=== PATIENT | male | born 1965 | race Caucasian/White ===

== ENCOUNTER → 2024-11-13 | Outpatient (CLI) | payer OTHER ==
[2024-11-13 15:28] LABS: CREATININE FOR GFR 1.21 MG/DL (0.70-1.30); GLOMERULAR FILTRATION RATE 68.1 (>49)
== END ==
LOC: M LAB 13:59
PROVIDERS: ATTEND Otolaryngology
DX: M48.02 Spinal stenosis, cervical region (principal)

== ENCOUNTER → 2024-11-24 | Outpatient (CLI) | payer OTHER ==
[~2024-11-24] MED LIST: ISOVUE-370 76% 100 ML VIAL ONE
== END ==
LOC: M PLAIMG 09:21
PROVIDERS: ATTEND Otolaryngology
DX: M50.01 Cervical disc disorder with myelopathy, high cervical region (principal)
CPT/HCPCS: 70491; Q9967

== ENCOUNTER → 2025-01-02 | Outpatient (CLI) | payer OTHER | LOC: M PLAIMG 14:34 | PROVIDERS: ATTEND Neurological Surgery | DX: M50.01 Cervical disc disorder with myelopathy, high cervical region (principal) ==

== ENCOUNTER 2025-02-17 06:16 | Observation (INO) | payer OTHER ==
[2025-02-17] VITALS (9 sets, daily range): BP systolic 126–146; BP diastolic 67–81; TEMP 97.2–98.2; O2SAT 91–96
[~2025-02-17] VITALS: Ht 180.3 cm; Wt 93.9 kg
[~2025-02-17 06:16] MED LIST changes: +DULO1CAP4 PO; +GABA-1171 PO; +HYDR-3490 PO; -ISOVUE-370 76% 100 ML VIAL ONE; +NAPR-1405 PO; +SIMV40TA20 PO; +TRIPCAP5 PO; +VALS40TA9 PO
[2025-02-17] MEDS: LR 1,000 ML IV SCH (07:00)
[2025-02-17] MEDS ORDERED: PROPOFOL 1,000 MG/100 ML VIAL As Ordered ONE (07:08)
[2025-02-17] MEDS ORDERED: SUCCINYLCHOLINE 100MG/5ML SYRINGE As Ordered ONE (07:15)
[2025-02-17] MEDS ORDERED: LIDOCAINE 2% 100 MG/5 ML SDV (FOR ANES.) As Ordered ONE (07:15)
[2025-02-17] MEDS ORDERED: MIDAZOLAM INJ 2 MG/2 ML VIAL As Ordered ONE (07:16)
[2025-02-17] MEDS ORDERED: ROCURONIUM BROMIDE 50MG/5ML VIAL As Ordered ONE (07:16)
[2025-02-17] MEDS ORDERED: REMIFENTANIL 1MG VIAL As Ordered ONE (07:19)
[2025-02-17] MEDS: GABAPENTIN 300 MG CAP PO ONE (07:24)
[2025-02-17] MEDS: LIDOCAINE W/EPINEPHrine 1% 20 ML VIAL As Ordered ONE (08:39)
[2025-02-17] MEDS ORDERED: ACETAMINOPHEN 1000MG/100ML IV BAG As Ordered ONE (09:59)
[2025-02-17] MEDS ORDERED: ONDANSETRON 4MG/2ML VIAL IV PRN ×2 (11:35→11:40)
[2025-02-17] MEDS ORDERED: METOPROLOL 5 MG/5 ML VIAL IV PRN (11:40)
[2025-02-17] MEDS ORDERED: hydrALAZINE 20 MG/ML 1 ML VIAL IV PRN (11:40)
[2025-02-17] MEDS ORDERED: CHLORASEPTIC SPRAY MT PRN (12:10)
[2025-02-17] MEDS: HYDROMORPHONE HCL 0.5 MG/0.5 ML SYRINGE IV PRN (12:10)
[2025-02-17] MEDS: MORPHINE 2 MG/ML 1 ML VIAL IV PRN (12:24)
[2025-02-17 13:05] LABS: BASO # 0.1 10^3/uL (0.0-0.2); BASO % 0.6 % (0.0-1.0); EOS # 0.1 10^3/uL (0.0-0.5); EOS % 1.5 % (0.0-3.0); LYMPH # 1.0 10^3/uL (1.5-5.0); LYMPH % 11.2 % (24.0-44.0); MONO # 0.4 10^3/uL (0.0-0.8); MONO % 4.5 % (2.0-8.0); NEUTROPHILS # 7.4 10^3/uL (1.5-8.5); NEUTROPHILS % 81.8 % (36.0-66.0); PLATELET COUNT, AUTOMATED 307 10^3/uL (150-450)
[2025-02-17 13:25] LABS: CALCIUM LEVEL 9.1 MG/DL (8.3-10.6); CARBON DIOXIDE LEVEL 28.0 MMOL/L (20-31); CHLORIDE LEVEL 102.0 MMOL/L (98-107); CREATININE FOR GFR 1.2 MG/DL (0.70-1.30); GLOMERULAR FILTRATION RATE 68.8 (>49); MAGNESIUM LEVEL 1.9 MG/DL (1.8-2.4); POTASSIUM SERUM 4.1 MMOL/L (3.5-5.1); SODIUM LEVEL 139.0 MMOL/L (136-145)
[2025-02-17] MEDS: NS (Normal Saline) 0.9% 1,000 ML IV ONE (13:38)
[2025-02-17] MEDS: ceFAZolin SODIUM 2 GM in DEXTROSE 5% (D5W) ADV/MINI-BAG 50 ML IV SCH (15:09)
[2025-02-17] MEDS: ACETAMINOPHEN 325 MG TAB PO SCH (17:32)
[2025-02-17] MEDS: SENNA 8.6 MG TAB PO SCH (20:09)
[2025-02-17] MEDS: CYCLOBENZAPRINE 10 MG TABLET PO PRN (20:09)
[2025-02-17] MEDS: DOCUSATE SODIUM 100 MG CAPSULE PO SCH (20:09)
[2025-02-18 03:56] VITALS: BP 138/79; TEMP 98.1; O2SAT 95
[2025-02-18 05:56] LABS: PLATELET COUNT, AUTOMATED 322 10^3/uL (150-450)
[2025-02-18 06:20] LABS: CALCIUM LEVEL 9.4 MG/DL (8.3-10.6); CARBON DIOXIDE LEVEL 30.0 MMOL/L (20-31); CHLORIDE LEVEL 96.0 MMOL/L (98-107); CREATININE FOR GFR 1.12 MG/DL (0.70-1.30); GLOMERULAR FILTRATION RATE 74.7 (>49); POTASSIUM SERUM 4.3 MMOL/L (3.5-5.1); SODIUM LEVEL 138.0 MMOL/L (136-145)
[2025-02-18 08:00] VITALS: BP 154/71; TEMP 97.2; O2SAT 95
[2025-02-18] MEDS: hydroCHLOROthiazide 25 MG TAB PO SCH (08:23)
[2025-02-18] MEDS: SIMVASTATIN 40 MG TAB PO SCH (08:23)
[2025-02-18] MEDS ORDERED: MIRA3350 PO (09:36)
[2025-02-18] MEDS ORDERED: ACET32TAB PO (09:36)
[2025-02-18] MEDS ORDERED: SENN-225 PO (09:36)
[2025-02-18] MEDS ORDERED: CYCL-707 PO (09:36)
[2025-02-18] MEDS ORDERED: OXYC-517 PO (09:36)
[2025-02-18] MEDS ORDERED: HEPARIN SOD 5000 UNITS/ML 1 ML VIAL/SYRINGE SQ SCH (21:00)
== END 2025-02-18 10:53 | disposition home or self-care (01) ==
LOC: M SDC 06:16 → M RR INP 06:17 → M PCU 13:08
PROVIDERS: ADMIT Student in an Organized Health Care Education/Training Program; ATTEND Student in an Organized Health Care Education/Training Program
DX: M48.02 Spinal stenosis, cervical region (principal); I10 Essential (primary) hypertension; E78.5 Hyperlipidemia, unspecified; N18.30 Chronic kidney disease, stage 3 unspecified; G89.29 Other chronic pain; Z79.899 Other long term (current) drug therapy
CPT/HCPCS: 20930; 22551; 22853; 36415; 72040; 76000; 80048; 83735; 85025; 85027; 86850; 86900; 86901; 88304; 96365; 96366; C1713; C1762; G0378; J0131; J0330; J0688; J1171; J2250; J3010